=== PATIENT | female | born 1985 | race Caucasian/White ===

== ENCOUNTER 2018-08-25 10:01 | Observation (INO) | payer OTHER ==
[2018-08-25] MEDS ORDERED: ACETAMINOPHEN 500 MG TAB PO ONE (10:23)
[2018-08-25] MEDS ORDERED: GABAPENTIN 300 MG CAP PO ONE (10:23)
[2018-08-25] MEDS ORDERED: ceFAZolin 2 GM/DEXTROSE 100 ML IV ONE (10:23)
[2018-08-25] MEDS ORDERED: LIDOCAINE 1% 2 ML INJ ID PRN (10:27)
[2018-08-25] MEDS ORDERED: LR 1,000 ML IV ONE (10:27)
--- NOTE | 2018-08-25 10:27 | PDHPUP ---
History & Physical Update H&P update statement: This history and physical update is based on an assessment of the patient which was completed after admission or registration (within 24 hours), but prior to the surgery/procedure. H&P update: H&P reviewed & patient examined, no change in patient's condition since H&P completed (Consent signed and site marked. All questions answered.)
[2018-08-25] MEDS ORDERED: MIDAZOLAM 2 MG/2 ML VIAL IVP ONE (11:20)
--- NOTE | 2018-08-25 11:20 | PDANEPAE ---
ANE History of Present Illness 31 yo with neck and arm pain, MRI showed CSS ANE Past Medical History - Cardiovascular History Hx Hypertension: No Hx Arrhythmias: No Hx Chest Pain: No Hx Coronary Artery / Peripheral Vascular Disease: No Hx CHF / Valvular Disease: No Hx Palpitations: No Cardiovascular History Comment: followed by [facility] every couple years for valve issues. bp's can run low - Pulmonary History Hx COPD: No Hx Asthma/Reactive Airway Disease: No Hx Recent Upper Respiratory Infection: No Hx Oxygen in Use at Home: No Hx Sleep Apnea: Yes Sleep Apnea Screening Result - Last Documented: Positive Pulmonary History Comment: luz maria positive- no devices, sleeps on side - Neurologic History Hx Cerebrovascular Accident: No Hx Seizures: No Hx Dementia: No Neurologic History Comment: migraines - Endocrine History Hx Diabetes: No Hypothyroid: Yes Hyperthyroid: No Endocrine History Comment: hypothyroidism - Renal History Hx Renal Disorders: No - Liver History Hx Hepatic Disorders: No - Neurological & Psychiatric Hx Hx Neurological and Psychiatric Disorders: Yes Neurological / Psychiatric History Comment: anxiety. ADD - Cancer History Hx Cancer: No - Congenital Disorder History Hx Congenital Disorders: No - GI History GERD: mild Hx Gastrointestinal Disorders: Yes Gastrointestinal History Comment: occ reflux- no diagnosis - Other Health History Other Health History: wears glasses. lyme disease. 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 dropped can of la croix on left foot and now it is black and blue - Chronic Pain History Chronic Pain: Yes (neck) - Surgical History Prior Surgeries: wisdom teeth ANE Review of Systems Review of Systems: - Exercise capacity METS (RN): 4 METS - Systems Constitutional: Reports: other (rash around lips due to food allergy several days ago) ANE Patient History - Allergies Allergies/Adverse Reactions: hydrocodone [From Vicodin] Allergy (Verified 08/17/18 11:50) Vomiting Opioids - Morphine Analogues Allergy (Verified 08/17/18 11:50) Vomiting oxycodone [From Percocet] Allergy (Verified 08/17/18 11:50) Vomiting - Home Medications Home Medications: Digestive Probiotic 08/17/18 [Last Taken 08/18/18] Herbals/Supplements -Info Only 08/17/18 [Last Taken 08/18/18] Levothyroxine 08/17/18 [Last Taken 08/25/18 05:30] VYVANSE 08/17/18 [Last Taken 08/24/18] - NPO status NPO Since - Liquids (Date): 08/25/18 NPO Since - Liquids (Time): 06:00 NPO Since - Solids (Date): 08/24/18 NPO Since - Solids (Time): 21:00 - Smoking Hx Smoking Status: Never smoked - Family Anes Hx Family Hx Anesthesia Complications: none ANE Labs/Vital Signs - Vital Signs Blood Pressure: 116/73 Heart Rate: 68 Respiratory Rate: 12 O2 Sat (%): 97 Height: 175.26 cm Weight: 97.522 kg ANE Physical Exam - Airway Neck exam: FROM Mallampati Score: Class 2 Mouth exam: normal dental/mouth exam - Pulmonary Pulmonary: no respiratory distress, clear to auscultation - Cardiovascular Cardiovascular: regular rate and rhythym, no murmur, rub, or gallop - ASA Status ASA Status: II ANE Anesthesia Plan Anesthesia Plan: general endotracheal anesthesia (neuro monitoring)
[2018-08-25] MEDS ORDERED: SURGIFLO MATRIX KIT WITH THROMBIN 8 ML TP ONE (11:23)
[2018-08-25] MEDS ORDERED: CHLORHEXIDINE GLUC HIBICLENS 118 ML BTL TP ONE (11:23)
[2018-08-25] MEDS ORDERED: THROMBIN (BOVINE) 5,000 UNIT VIAL TP ONE (11:24)
[2018-08-25] MEDS ORDERED: BACITRACIN 50,000 UNITS/10 ML SYR IRR ONE (11:24)
[2018-08-25] MEDS ORDERED: SCOPOLAMINE HYDROBROMIDE 1 MG/3 DAYS PATCH TD SCH (11:30)
[2018-08-25] MEDS ORDERED: fentaNYL 250 MCG/5 ML INJ ONE (11:34)
[2018-08-25] MEDS ORDERED: PROPOFOL/EMULSION 500 MG/50 ML BOTTLE IV ONE ×3 (11:34→13:22)
[2018-08-25] MEDS ORDERED: LIDOCAINE 2% 5 ML SDV ONE (11:35)
[2018-08-25] MEDS ORDERED: SUCCINYLCHOLINE CHLORIDE 200 MG/10 ML SYR IVP ONE (11:35)
[2018-08-25] MEDS ORDERED: BUPIVACAINE 0.5% 30 ML SDV ONE (12:38)
[2018-08-25] MEDS ORDERED: PROMETHAZINE HCL 25 MG/ML INJ IVP PRN ×2 (13:06→14:29)
[2018-08-25] MEDS ORDERED: ACETAMINOPHEN 500 MG TAB PO PRN (13:06)
[2018-08-25] MEDS ORDERED: MEPERIDINE 25 MG/0.5 ML AMP IVP PRN (13:06)
[2018-08-25] MEDS ORDERED: NALOXONE HCL 0.4 MG/ML INJ IVP PRN (13:06)
--- NOTE | 2018-08-25 13:06 | POSTANESTH ---
Post Anesthetic Evaluation Cardiovascular Status: Normal, Stable Respiratory Status: Normal, Stable Level of Consciousness/Mental Status: Can Participate in Eval Pain Control: Adequate, Prn Tx Ordered Nausea/Vomiting Control: Adequate, Prn Tx Ordered Complications Possibly Related to Anesthesia: None Noted
[2018-08-25] MEDS ORDERED: fentaNYL 100 MCG/2 ML INJ ONE (14:26)
[2018-08-25] MEDS: fentaNYL 100 MCG/2 ML INJ IVP PRN ×2 (14:27→14:36)
[2018-08-25] MEDS ORDERED: BISACODYL 10 MG SUPP PR PRN (14:29)
[2018-08-25] MEDS ORDERED: ONDANSETRON 4 MG/2 ML VIAL IVP PRN (14:29)
[2018-08-25] MEDS ORDERED: diphenhydrAMINE 25 MG CAP PO PRN (14:29)
[2018-08-25] MEDS ORDERED: POLYETHYLENE GLYCOL 3350 17 GM PKT PO PRN (14:29)
[2018-08-25] MEDS ORDERED: LACTULOSE 20 GM/30 ML UDCUP PO PRN (14:29)
[2018-08-25] MEDS ORDERED: MAGNESIUM HYDROXIDE 30 ML UDCUP PO PRN (14:29)
[2018-08-25] MEDS ORDERED: NS 1,000 ML IV SCH (14:30)
--- NOTE | 2018-08-25 14:38 | POSTOPPROG ---
Post Op Note Date of Operation: 08/25/18 Surgeon: Cristhian Yu Hydraulic Lift Operator: TROY Hernandez PAC Anesthesia: GET(General Endotracheal) Pre-op Diagnosis: Cerivcal stenosis Post-op Diagnosis: cervical stenosis Indication: cervical stenosis Procedure: ACDF C6/7 Inf/Abcess present in the surg proc area at time of surgery?: No EBL: Minimal PA Addendum - Addendum .: S: Posterior neck pain O: NAD A&Ox3 MAEx4 5/5 and equal in BUE and BLE 32F s/p ACDF C6/7 -Advance diet as tolerated -Optimize pain management -Post op xrays pending -DVT prophx: TEDs, SCDs, Lovenox okay POD3 -PT/OT/FACILITIES DIRECTOR -Please notify NS with any change in neuro/motor exam
[2018-08-25] MEDS ORDERED: oxyCODONE IR 5 MG TAB ONE (15:01)
[2018-08-25] MEDS: oxyCODONE IR 5 MG TAB PO PRN ×2 (15:03→17:51)
--- NOTE | 2018-08-25 17:22 | SOAPPROG ---
Downtime Inpatient MD Late Entry SOAP Note: I met with the patient. She is doing well overall. Will monitor overnight and then plan for dc tomorrow if swallowing and pain controlled.
[2018-08-25] MEDS: ONDANSETRON DISINTEGRATING 4 MG TAB PO PRN (17:45)
[2018-08-25] MEDS: SENNOSIDES/DOCUSATE SODIUM TAB PO SCH (20:10)
[2018-08-25] MEDS: FAMOTIDINE 20 MG TAB PO SCH (20:10)
[2018-08-25] MEDS: ceFAZolin 2 GM/DEXTROSE 100 ML IV SCH (20:12)
[2018-08-25] MEDS: ACETAMINOPHEN 500 MG TAB PO SCH (22:31)
[2018-08-26] MEDS: ONDANSETRON DISINTEGRATING 4 MG TAB PO PRN ×2 (03:34→11:32)
[2018-08-26] MEDS: oxyCODONE IR 5 MG TAB PO PRN ×2 (03:47→11:32)
[2018-08-26] MEDS: ceFAZolin 2 GM/DEXTROSE 100 ML IV SCH (03:51)
[2018-08-26] MEDS: ACETAMINOPHEN 500 MG TAB PO SCH (05:36)
[2018-08-26 07:25] VITALS: BP 103/58
[2018-08-26] MEDS: SENNOSIDES/DOCUSATE SODIUM TAB PO SCH (08:40)
[2018-08-26] MEDS: FAMOTIDINE 20 MG TAB PO SCH (08:40)
--- NOTE | 2018-08-26 10:08 | GOP ---
DATE OF OPERATION: 08/25/2018 SURGEON: Cristhian Yu MD DIRECTOR OF BANDS: Esperanza Hernandez PA-C ANESTHESIA: General. PREOPERATIVE DIAGNOSIS: 1. C6-7 cervical stenosis secondary to a large herniated nucleus pulposus.. 2. Radiculopathy and weakness 3. Treatment refractory to nonoperative intervention. POSTOPERATIVE DIAGNOSIS: 1. C6-7 cervical stenosis secondary to a large herniated nucleus pulposus.. 2. Radiculopathy and weakness 3. Treatment refractory to nonoperative intervention. PROCEDURE PERFORMED: 1. Anterior arthrodesis with approach through C6 and C7. 2. C6-7 diskectomy with bilateral foraminotomies, osteophytectomies, and interbody fusion using a 6 x 14 x 11 mm titanium coated PEEK cage filled with morselized autograft and allograft. 3. Anterior cervical fusion C6-7 with a 15 mm Medtronic Zevo plate. 4. Use of intraoperative fluoroscopy less than 1 hour physician time. 5. Use of neuromonitoring. 6. Use of a microscope. FINDINGS: large disc herniation with spinal cord compression SPECIMENS: None. ESTIMATED BLOOD LOSS: 10 mL. INDICATIONS: The patient is a very pleasant woman who unfortunately has been suffering from bilateral upper extremity radiculopathy and some weakness. She had evidence for a large herniated nucleus pulposus at the C6-7 level causing severe spinal stenosis. After a discussion of the risks, benefits, and treatment alternatives, we decided to proceed forth with surgery as described above. DESCRIPTION OF PROCEDURE: The patient was brought to the operating theater and underwent general endotracheal anesthesia without complications. She had Venodynes, JODY hose, and the appropriate lines placed by Anesthesia. Her head was then placed in slight extension. All bony prominences were inspected and padded. Using lateral fluoroscopy and spinal needle, we picked our entry point the C6-7 level. This was marked as a transverse incision on the right side of her neck. This area was prepped and draped in the usual sterile surgical fashion. A time-out was completed per protocol and the patient received antibiotics within 1 hour of incision. The incision was taken down initially with the scalpel blade and then using monopolar taken down through subcutaneous tissues to the level of the platysma. The platysma was overmined in the cranial and caudad direction. A Weitlaner was placed to maintain our exposure. We opened the fibers of the platysma cranially and caudally. Using blunt and sharp dissection, we traveled in a plane medial to the carotid sheath and lateral to the esophagus and tragus until we reached the prevertebral fascia. We elevated the longus coli muscle from the anterior vertebral bodies of C6 and C7 after confirming our level using lateral fluoroscopy. The microscope was brought onto the field to assist with microscopic dissection and to maintain illumination and magnification. We placed deep retractors to maintain our exposure. We then placed a Matheny pin into the vertebral body of C6 and C7 and placed C6-7 in mild distraction. At this point, we completed a C6 -7 diskectomy with bilateral foraminotomies and osteophytectomies. We prepared the cartilaginous endplates and measured the interbody space. We then placed a 6 x 14 x 11 mm titanium coated PEEK cage filled with morselized autograft and allograft into the C6-7 disk space. We removed the Matheny pins and drilled down the anterior osteophytes. We secured a 15 mm Medtronic Zevo plate onto the vertebral bodies of C6 and C7. AP and lateral x-rays demonstrated good placement of the hardware. The wound was irrigated copiously with Bacitracin irrigation. We then closed the wound in multiple layers including Vicryl sutures for the deep layers and Dermabond or the skin. The patient's wound was dressed sterilely. She was awakened, extubated, and taken to the recovery room in stable condition. There were no complications and no noted changes on neuromonitoring throughout the procedure. COMPLICATIONS: None. /[id number]/MODL MTDD
--- NOTE | 2018-08-26 10:27 | NEUSURGPN ---
Assessment/Plan: A/P:32F s/p ACDF C6/7 -Advance diet as tolerated -Optimize pain management -Post op xrays show stable hardware -DVT prophx: TEDs, SCDs going home today and ambulating well -PT/OT/PARTITION NOTCHER -Dispo- Home today -Please notify NS with any change in neuro/motor exam S: Doing well. Sore throat as expected but eating well. Has expected scapular pain as well O: NAD, VSS PERRL, EOMI BUE 5/5= Sensation intact to lt touch Incision c/d/i- neck supple no induration - Physician Discussed Patient with : Aimee Neurosurgery Physical Exam - Vitals, I&O, Labs I and O 08/25/18 08/26/18 08/27/18 05:59 05:59 05:59 Intake Total 2500 Output Total 910 Balance 1590 Weight 97.522 kg Intake: Oral (ml) 1500 IV Intake (ml) 1000 Output: Urine (ml) 900 Toilet 900 Estimated Blood Loss (ml) 10 Other: Number of Voids Toilet 1 Vital Signs Temp Pulse Resp BP Pulse Ox 36.4 C 65 14 103/58 L 93 08/26/18 07:25 08/26/18 07:25 08/26/18 07:25 08/26/18 07:25 08/26/18 07:25 ICD10 Worksheet Patient Problems: Problems Problem Status Onset Cervical radiculopathy at C6 Acute - ICD10 Problem Qualifiers (1) Cervical radiculopathy at C6
--- NOTE | 2018-08-26 11:44 | ASMTCMCOM ---
CM Note CM Note Notes: Pt had planned surgery for cervical stenosis. Pt resides alone, will stay at parents house at d/c. OT/[employer]AV[employer] AGENCY MANAGER rec home, PT rec outpatient. Pt medically stable for d/c, no CM d/c needs identified. Date Signed: 08/26/2018 11:43 AM Electronically Signed By:EMMANUEL Peña
[2018-08-28] MEDS ORDERED: ENOXAPARIN 40 MG/0.4 ML SYR SC SCH (09:00)
[2018-08-28] MEDS ORDERED: PATCH REMOVAL 1 EA PATCH TD SCH (11:20)
== END 2018-08-26 11:46 | disposition home or self-care (01) ==
LOC: FSGY 10:01 → F3E 14:29 → F3N 15:25
PROVIDERS: ADMIT Physician Assistant; ATTEND Neurological Surgery
PROC: BR101ZZ Fluoroscopy of Cervical Spine using Low Osmolar Contrast (ICD-10-PCS; principal; 2018-08-25 13:45)
PROC: 0RB30ZZ Excision of Cervical Vertebral Disc, Open Approach (ICD-10-PCS; principal; 2018-08-25 13:45)
PROC: 0RG10A0 Fusion of Cervical Vertebral Joint with Interbody Fusion Device, Anterior Approach, Anterior Column, Open Approach (ICD-10-PCS; principal; 2018-08-25 13:45)
PROC: 4A10X4G Monitoring of Central Nervous Electrical Activity, Intraoperative, External Approach (ICD-10-PCS; principal; 2018-08-25 13:45)
DX: M48.02 Spinal stenosis, cervical region (principal); M50.123 Cervical disc disorder at C6-C7 level with radiculopathy; R53.1 Weakness; E03.9 Hypothyroidism, unspecified
CPT/HCPCS: 22551; 72040; 76001; 92610; 97161; 97165; G0378; C1713; J0330; J0690; J2250; J2704; J3010